=== PATIENT | female | born 1980 | race Caucasian/White ===

== ENCOUNTER 2024-09-26 10:50 | Outpatient (AMB) | payer OTHER, SELFPAY ==
--- NOTE | 2024-09-26 11:01 | HO.SPINEOV ---
Vital Signs 09/26/24 11:04 Height 5 ft 8 in Weight 155 lb BMI 23.6 Intake Visit Reasons: neck pain Intake Note: Ms. Rutherford is here today c/o neck pain. 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 Allergies bee pollen (bee stings) Allergy (Severe, Verified 09/26/24 11:06) Swelling Sulfa (Sulfonamide Antibiotics) Allergy (Severe, Verified 09/26/24 11:06) Hives sulfamethoxazole (From Bactrim) Allergy (Severe, Verified 09/26/24 11:06) Hives trimethoprim (From Bactrim) Allergy (Severe, Verified 09/26/24 11:06) Hives Physical Exam Vital Signs: BMI result Body Mass Index 23.6 Assessment & Plan Assessment & Plan (1) Cervical disc disorder: Code(s): M50.90 - Cervical disc disorder, unspecified, unspecified cervical region Category: Medical Plan Dear Dr Brooks, Thank you for referring Bertin Rutherford to our office today. She is a very nice 44-year-old female who presents today for evaluation of a constellation of symptoms that started sometime in March. It initially began with what felt like an ache in her right shoulder and then transitioned over the course of a few months into a combination of feelings of coldness and discoloration in her right hand, swelling in her right hand, subscapular pain as well as tingling in her fingers at times. She also describes feeling as though her ears are clogged as well. She has been through acupuncture and was trying meloxicam and gabapentin as well. The gabapentin really has not been helping at all. She has started with the physical therapist recently but has not actually undergone any specific treatment with a therapist yet, it was more just an 1st visit evaluation. She did get a CTA of the chest with orientation toward the thoracic outlet and did show some mild narrowing of the subclavian artery. She is due to see a specialist in [place] sometime next year for this. The visit is to discuss possible diagnosis of thoracic outlet syndrome. She came in today to see us for reports on MRI done at [facility], [place] of her cervical spine showing severe left C6-7 foraminal stenosis as well as mild right C5-6 foraminal stenosis. PMH: She is reasonably healthy otherwise, she has had adenoids removed, repair of a right thumb secondary to tendon injury and double mastectomy. Denies any issues with heart disease, pulmonary issues, liver or kidney disease, cancer, infections or bleeding disorders. Social hx: She does not smoke, drink or use any recreational drugs Medications: Meloxicam and gabapentin Allergies: Bactrim and sulfa Physical exam: She is awake alert oriented no acute distress, she has some mild strength loss in the right hand which I would rate as 4/5. No loss of muscle bulk or tone in the upper extremities. She does have discoloration of her whole right hand. Specifically, her whole right hand looks slightly red to purplish with some delayed capillary refill. There is a distinct difference in temperature from her right to her left hand, with the right side being cold her. She does have uniform pulses, but it seems as though there is a weaker pulse in the right radial artery. Reflexes are normal, no Mckeon's sign. Gait is normal. She does have impingement signs in the right shoulder with pain in the anterior capsule with strength testing and went to ask her to put her arm behind her back. Imaging review: Cervical MRI done at [facility], [place] shows some straightening of the normal lordotic curvature of the cervical spine, on the right at C5-6 there is a disc osteophyte complex with some overgrowth of the uncovertebral joint causing moderate foraminal narrowing. On the left at C6-7 there is severe left sided foraminal narrowing. No cord compression seen. Impression: 44-year-old female presents for evaluation of a constellation of symptoms as outlined above. One of the main issue she is having is shoulder pain anteriorly and in the subscapular region. 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 She has an MRI coming up which should help elucidate that and can be referred to orthopedics depending on the findings. I do not think the shoulder pain is coming from the moderate foraminal stenosis on the right at C5-6 because she does not have the traditional pain shooting down into her arm and hand. I do not think the discoloration/swelling of her hand and the loss of temperature sensation is coming from the nerve either. She showed me a picture from sometime around May when she was having a flare-up of the issue with her hand and it was clearly blue to purple with significant increase in swelling. This would not be typical of cervical radiculitis. It sounds like it is more vascular. She is due to follow-up with the vascular specialist in [place] but unfortunately the appointment was sometime next year. Right now I do not think there is anything to do for the findings on the left at C6-7 with a foraminal stenosis because she is asymptomatic. If she develops left arm pain certainly this could explain it and I educated her on how to recognize if she is having more traditional cervical radicular pain. I would be happy to see her back down the road if something changes. Thank you for allowing us to care for your patient. The total time spent with this visit with this patient was 45 minutes reviewing history, physical exam, cervical imaging review, and implementation of treatment plan or further diagnostic testing Nawaf Stapleton MD,PhD [facility] Coding Level of Care Code New Pt Level 4 (01327) Diagnoses Cervical disc disorder M50.90
[2024-09-26 11:04] VITALS: BMI 23.6
== END 2024-09-26 12:04 | disposition home or self-care (01) ==
LOC: HO.HNS 10:51
PROVIDERS: PCP Family Medicine; Visit Provider Physician Assistant
DX: M50.90 Cervical disc disorder, unspecified, unspecified cervical region (principal)
CPT/HCPCS: 99204

== ENCOUNTER → 2024-09-26 10:50 | Outpatient (BNVA) | payer OTHER, SELFPAY | PROVIDERS: PCP Family Medicine; Visit Provider Physician Assistant | DX: M50.90 Cervical disc disorder, unspecified, unspecified cervical region (principal) | CPT/HCPCS: 99202 ==